=== PATIENT | female | born 2000 | race Two or more races ===

== ENCOUNTER 2019-07-04 19:51 | Emergency (ER) | payer OTHER ==
[~2019-07-04] VITALS: Ht 170.2 cm; Wt 47.6 kg
[2019-07-05] MEDS ORDERED: CIPRO500 MG PO (02:31)
== END 2019-07-05 03:55 | disposition home or self-care (01) ==
LOC: ER 19:51
DX: R50.9 Fever, unspecified (principal); N39.0 Urinary tract infection, site not specified

== ENCOUNTER → 2023-05-13 | Emergency (ER) | payer OTHER ==
[~2023-05-13] VITALS: Ht 170.2 cm; Wt 54.4 kg
[~2023-05-13] MED LIST: CIPRO500 MG PO
[2023-05-13 11:20] LABS: HEMATOCRIT 39.5 % (36.0-45.00); HEMOGLOBIN 13.6 g/dL (12.0-15.00); MEAN CELL VOLUME 91.2 fL (80.00-100.00); MEAN CORPUSCULAR HEMOGLOBIN 31.3 pg (27.00-32.0); MEAN CORPUSCULAR HGB CONC 34.4 g/dl (32.0-36.0); PLATELET COUNT 156 K/uL (150-450); RED BLOOD COUNT 4.33 M/uL (4.00-6.00); RED CELL DISTRIBUTION WIDTH 13.5 % (11.5-14.5)
== END | disposition home or self-care (01) ==
LOC: ER 09:28
PROVIDERS: General Practice
DX: J10.1 Influenza due to other identified influenza virus with other respiratory manifestations (principal); R11.10 Vomiting, unspecified; Z20.822 Contact with and (suspected) exposure to COVID-19

== ENCOUNTER 2023-06-28 13:51 | Emergency (ER) | payer OTHER ==
[~2023-06-28] VITALS: Ht 170.2 cm; Wt 54.4 kg
[2023-06-28] MEDS ORDERED: INTESTINEX680 M1 PO (17:24)
[2023-06-28] MEDS ORDERED: AMOX-CLAV 875-1 EAC1 PO (17:24)
[2023-06-28] MEDS ORDERED: MOTRIN IB200 MG PO (17:24)
[2023-06-28] MEDS ORDERED: ONDANSETRON HCL4 MG PO (17:24)
== END 2023-06-28 19:07 | disposition home or self-care (01) ==
LOC: ER 13:52
DX: J35.8 Other chronic diseases of tonsils and adenoids (principal); H66.91 Otitis media, unspecified, right ear

== ENCOUNTER 2024-03-01 09:28 | Outpatient (CLI) | payer OTHER ==
[~2024-03-01 09:28] MED LIST changes: +AMOX-CLAV 875-1 EAC1 PO; +INTESTINEX680 M1 PO; +MOTRIN IB200 MG PO; +ONDANSETRON HCL4 MG PO
== END 2024-03-01 09:29 | disposition home or self-care (01) ==
LOC: PRENATAL 09:28
PROVIDERS: ATTEND Obstetrics & Gynecology Maternal & Fetal Medicine
DX: O26.843 Uterine size-date discrepancy, third trimester (principal); O36.8130 Decreased fetal movements, third trimester, not applicable or unspecified; O99.013 Anemia complicating pregnancy, third trimester; Z3A.32 32 weeks gestation of pregnancy